=== PATIENT | female | born 1995 | race African-American/Black ===

== ENCOUNTER 2023-01-17 17:20 | Emergency (ER) | payer MEDICAID ==
[~2023-01-17] VITALS: Ht 170.2 cm; Wt 68.2 kg
[2023-01-17] MEDS ORDERED: HYDROmorphone inj. 0.5 MG/0.5 ML DISP.SYRIN IV STA (18:32)
[2023-01-17] MEDS ORDERED: ondansetron/PF 4mg/2ml inj IV ONE (18:35)
[2023-01-17] MEDS ORDERED: bacitracin 15gm ointment TP ONE (21:20)
[2023-01-17 21:22] VITALS: BP 130/91; PULSE 67; TEMP 98.7; O2SAT 100
[2023-01-17] MEDS ORDERED: LIDOCAINE 1%/EPI 1:100,000 inj. 10 ML multi-dose vial IJ ONE (21:35)
[2023-01-17] MEDS ORDERED: oxyCODONE/APAP 10/325mg tablet PO ONE (21:55)
[2023-01-17 22:10] VITALS: RESP 16
[2023-01-17] MEDS ORDERED: IBUP-1984 PO (22:10)
== END 2023-01-17 23:17 | disposition home or self-care (01) ==
LOC: ER 17:22
DX: S81.811A Laceration without foreign body, right lower leg, initial encounter (principal); S80.12XA Contusion of left lower leg, initial encounter; X58.XXXA Exposure to other specified factors, initial encounter; Y93.89 Activity, other specified; Y92.89 Other specified places as the place of occurrence of the external cause; Y99.8 Other external cause status
CPT/HCPCS: 12002; 73590; 99283; J7030; A6258; A6449

== ENCOUNTER 2023-08-12 15:40 | Outpatient (CLI) | payer MEDICAID | END 2023-08-12 23:59 | disposition home or self-care (01) | LOC: RAD 15:40 | PROVIDERS: ATTEND Obstetrics & Gynecology | DX: O32.1XX0 Maternal care for breech presentation, not applicable or unspecified (principal); Z3A.21 21 weeks gestation of pregnancy | CPT/HCPCS: 76811 ==